=== PATIENT | female | born 1985 | race Caucasian/White ===

== ENCOUNTER → 2020-08-16 | Outpatient (CLI) | payer BC, OTHER ==
[~2020-08-16] MED LIST: BUSPIRONE HCL5 MG PO; CLARITIN10 MG PO; COLACE100 MG PO; FEROCON CAPSUL1 EACH PO; FLONASE 0.05% N16 GM; IBUPROFEN800 MG PO; KEFLEX CAP 250250 MG PO; PEPCID20 MG PO; PRENATAL TABLE1 EAC1 PO; SPRINTEC 28 DA1 EACH PO
== END ==
LOC: EXRD 14:30
DX: M79.89 Other specified soft tissue disorders (principal)
CPT/HCPCS: 93971

== ENCOUNTER → 2020-09-30 | Outpatient (CLI) | payer BC, OTHER | LOC: HEART 5 15:28 | DX: R55 Syncope and collapse (principal) | CPT/HCPCS: 93306 ==

== ENCOUNTER → 2020-10-18 | Outpatient (CLI) | payer BC, OTHER | LOC: GENOP 20:45 | DX: O62.9 Abnormality of forces of labor, unspecified (principal); O26.893 Other specified pregnancy related conditions, third trimester; M25.552 Pain in left hip; M25.551 Pain in right hip; R10.30 Lower abdominal pain, unspecified; J30.2 Other seasonal allergic rhinitis; O99.353 Diseases of the nervous system complicating pregnancy, third trimester; G43.909 Migraine, unspecified, not intractable, without status migrainosus; O23.43 Unspecified infection of urinary tract in pregnancy, third trimester; O99.283 Endocrine, nutritional and metabolic diseases complicating pregnancy, third trimester; Z3A.39 39 weeks gestation of pregnancy; E03.9 Hypothyroidism, unspecified; Z88.1 Allergy status to other antibiotic agents; Z88.8 Allergy status to other drugs, medicaments and biological substances | CPT/HCPCS: G0463 ==

== ENCOUNTER 2020-10-23 06:01 | Inpatient (IN) | payer BC, OTHER ==
[~2020-10-23] VITALS: Ht 160 cm; Wt 80.3 kg
[~2020-10-23 06:01] MED LIST changes: -COLACE100 MG PO; -FEROCON CAPSUL1 EACH PO; -IBUPROFEN800 MG PO; -PEPCID20 MG PO; -PRENATAL TABLE1 EAC1 PO
[2020-10-23] MEDS ORDERED: PRENATAL TABLE1 EAC1 PO (06:07)
[2020-10-23] MEDS ORDERED: COLACE100 MG PO ×2 (06:40→15:48)
[2020-10-23] MEDS ORDERED: PEPCID20 MG PO (06:41)
[2020-10-23 06:54] LABS: HEMOGLOBIN 11.7 gm/dl (12.3-15.3); RED BLOOD COUNT 3.91 M/UL (4.00-5.10); WHITE BLOOD COUNT 11.2 K/UL (4.5-11.0)
[2020-10-23] MEDS ORDERED: IBUPROFEN800 MG PO (15:48)
[2020-10-23] MEDS ORDERED: FEROCON CAPSUL1 EACH PO (15:48)
[2020-10-24 06:01] LABS: HEMOGLOBIN 11.2 gm/dl (12.3-15.3)
== END 2020-10-24 18:42 | disposition home or self-care (01) | DRG 806 ==
LOC: OB 06:01
PROVIDERS: Obstetrics & Gynecology; ADMIT Obstetrics & Gynecology
PROC: 10E0XZZ Delivery of Products of Conception, External Approach (ICD-10-PCS; principal; 2020-10-23)
PROC: 10907ZC Drainage of Amniotic Fluid, Therapeutic from Products of Conception, Via Natural or Artificial Opening (ICD-10-PCS; 2020-10-23)
PROC: 3E033VJ Introduction of Other Hormone into Peripheral Vein, Percutaneous Approach (ICD-10-PCS; 2020-10-23)
PROC: 0U7C7ZZ Dilation of Cervix, Via Natural or Artificial Opening (ICD-10-PCS; 2020-10-23)
PROC: 3E0234Z Introduction of Serum, Toxoid and Vaccine into Muscle, Percutaneous Approach (ICD-10-PCS; 2020-10-24)
DX: O99.284 Endocrine, nutritional and metabolic diseases complicating childbirth (principal); O98.32 Other infections with a predominantly sexual mode of transmission complicating childbirth; Z37.0 Single live birth; A60.00 Herpesviral infection of urogenital system, unspecified; Z3A.40 40 weeks gestation of pregnancy; E03.9 Hypothyroidism, unspecified; O99.344 Other mental disorders complicating childbirth; F41.9 Anxiety disorder, unspecified; Z23 Encounter for immunization
CPT/HCPCS: 36415; 51702; 85014; 85018; 85025; 90715; J2590; J2795

== ENCOUNTER → 2022-04-02 | Outpatient (CLI) | payer BC, OTHER ==
[~2022-04-02] MED LIST changes: +COLACE100 MG PO; +FEROCON CAPSUL1 EACH PO; +IBUPROFEN800 MG PO; +PEPCID20 MG PO; +PRENATAL TABLE1 EAC1 PO
== END ==
LOC: EXRD 10:25
DX: M54.50 Low back pain, unspecified (principal); M54.9 Dorsalgia, unspecified
CPT/HCPCS: 72070; 72110